=== PATIENT | female | born 1990 | race Caucasian/White ===

== ENCOUNTER 2024-01-24 14:52 | Emergency (ER) | payer SELFPAY ==
[2024-01-24 14:56] VITALS: BP 189/101
--- NOTE | 2024-01-24 16:08 | ED.GENMED ---
History of Present Illness
General
Chief Complaint: Skin Problem
Source: patient
Exam Limitations: none
Time Seen by Provider: 01/24/24 16:03
Nursing documentation reviewed up to this point in time: agreed with
History of Present Illness
History of Present Illness:
This is a 33 y/o female with a PMH of HTN, anxiety, opioid use disorder on Suboxone presenting to the emergency department today with concerns of pain and swelling to the vaginal area. Patient reports when this first started a week or so ago, she
thought she had a pimple or an ingrown hair in the area. Patient reports that she than proceeded to have increasing pain as the days progressed and started to have discomfort with sitting. On self examination, she noticed swelling in the genital
area and believes it may be an ingrown hair. Patient states that she had an abscess on her vulva in the past on the right side which was drained before. Patient states that she currently does not follow with an OBGYN and is currently in the process
of getting insurance. Patient notes purulent discharge in her underwear and believes the abscess has started to open up. Patient also is requesting STD testing although denies new sexual partner, denies burning with urination, urinary hesitancy,
urgency, frequency, pelvic pain, abdominal pain, nausea, vomiting, fevers, chills.
Review of Systems
Review of Systems
All Other Systems: ROS reviewed and negative except as documented in HPI and ROS
Phy Exam
Physical Exam
Physical Exam:
General: Patient appears uncomfortable secondary to pain, tearful but non-toxic
Skin: Warm and dry, no rashes or lesions
Head: Normocephalic, atraumatic
Eyes: Sclera non-icteric. EOMs intact. PERRLA.
Cardiac: Regular rate
Pulm: Normal respiratory effort
Genitourinary: 2 cm indurated region with surrounding erythema noted on the lower left labia majora near bartholins glands. Small non-bleeding external hemorrhoid noted. No perirectal abscesses.
Neuro: CN II-XII intact, no focal neurologic deficits.
Psychiatric: Appropriate mood and affect.
Course
Orders/Labs/Results
Orders:
Orders
01/24/24 16:34
Acetaminophen [Tylenol] 1,000 mg PO NOW STA
01/24/24 17:37
Ibuprofen [Motrin] 400 mg PO NOW STA
01/24/24 18:29
Test Result ONCE
01/24/24 18:42
, Urine Qualitative Screen [HCG, Urine Qualitative Screen] Urgent
Date Specimen was Collected: 01/24/24
Time Specimen was Collected: 18:38
Urinalysis Reflex To Culture Urgent
Date Specimen was Collected: 01/24/24
Time Specimen was Collected: 18:38
Urine Microscopic Reflex Cult Urgent
Urine Culture Urgent
ERIC Source: U
Specimen Description:
Date Specimen was Collected: 01/24/24
Time Specimen was Collected: 18:38
Wound Culture [Wound/Abscess/Other Culture] Urgent
ERIC Source: Abscess
Specimen Description:
Date Specimen was Collected: 01/24/24
Time Specimen was Collected: 18:38
Abnormal Lab Results
01/24/24
18:42
Urine Ketones 2+ A
(Negative)
Ur Occult Blood Reflex 3+ A
(Negative)
Urine Bilirubin 1+ A
(Negative)
Leukocyte Esterase Rfl 2+ A
(Negative)
Urine RBC 3-6 A /HPF
(0-2)
Urine WBC (Reflex) 11-15 A /HPF
(0-5)
Urine Bacteria (Reflex) Few A
(Negative)
Vital Signs
Initial and Last Documented VS:
Initial Vital Signs
Temp Pulse Resp BP Pulse Ox
98.3 F 74 20 189/101 99
01/24/24 14:56 01/24/24 14:56 01/24/24 14:56 01/24/24 14:56 01/24/24 14:56
Last Documented Vital Signs
Temp Pulse Resp BP Pulse Ox
98.3 F 96 18 98/73 99
01/24/24 14:56 01/24/24 18:56 01/24/24 18:56 01/24/24 18:56 01/24/24 14:56
Procedures
Incision/Drainage/Joint Aspiration
Left Vagina:
Anethesia: 1% Lidocaine with Epi
Preparation: cleaned with Betadine
Type of procedure: incise and drain
Nature of site: abscess
Description of abscess: less than 3cm
Loculations broken up: No
How much fluid was obtained?: large amount
Fluid description: purulent and blood tinged
Treatment: left open for drainage and antibiotics started
MDM/Problems Addressed
Differential Diagnosis Includes:
ddx include Bartholin gland cyst/abscess, vulvar abscess, cellulitis, contact vaginitis
MDM/Problems Addressed:
Vulvar cyst/abscess:
This is a 33 y/o female with a PMH of HTN, anxiety, opioid use disorder on Suboxone presenting to the emergency department today with concerns of pain and swelling to the vaginal area. Patient denies fevers, chills, nausea, vomiting. Denies burning
with urination, pelvic pain, abdominal pain. She does have a hx of vaginal abscess on opposite side. On physical exam, her vitals are stable, afebrile, there is a 2 cm indurated region with surrounding erythema noted on the lower left labia majora
near bartholins glands consistent with bartholins gland abscess. The area was anesthetized and abscess was incised and drained. No cyst capsule removed. Considered word catheter but patient has poor outpatient follow up due to current financial
limitations. After procedure, patient notes significant improvement in her symptoms and is nearly pain free and able to sit with comfort. Considering extensive surrounding erythema, patient was started on antibiotics. Patient is allergic to
amoxicillin, I opted for Bactrim. Discussed with patient that these tend to reoccur without surgical intervention, stressed OBGYN follow up. Reviewed case and treatment plan with my attending Dr. Stubbs. Patient stable for discharge. Patient's pain
was managed with Tylenol and Motrin.
Chronic conditions affecting care:
opioid use disorder on Suboxone, anxiety, hypertension
*Pulse Oximetry
Patient hypoxic: no
*Critical Care Note
Total Time (30-74mins, 75-104mins- exclusive of procedures): Not Applicable
Data Reviewed
Review of Other/Old Records Reveals: Records (reviewed operative report from 09/16/21) and Discharge Summary (no hospital discharge summaries in [facility] to review)
Source: patient and records
Prescriptions/Medications Considered But Not Given:
n/a
Further Testing Considered But Not Given:
n/a
Patient Management
Social determinants of health affecting care: Poor outpatient follow-up
Escalation/DeEscalation of care consider admission/obs:
Admit not indicated, patient stable for discharge.
ED Attending Note
-
Portions of this chart may have been created with voice recognition software.� Occasional wrong word or��sound alike� substitutions may have occurred due to the inherent limitations of voice recognition software.
Discharge Plan
Departure
Patient Disposition: Home (Routine Discharge)
Date of Disposition: 01/24/24
Time of Disposition: 18:33
Patient with high blood pressure during this ER visit?: Yes
Condition: Good
Discharge Problem:
Abscess of Bartholin gland
Instructions: Bartholin gland cyst, How to Do a Sitz Bath, Skin Abscess
Prescriptions:
New
sulfamethoxazole-trimethoprim [Bactrim DS] 800-160 mg tablet
1 tab PO BID 5 Days Qty: 10 0RF
No Action
Suboxone Tablet
10 mg PO DAILY
Referrals:
Tiara Arguello, DO [Active] - Call in 1-3 days for appt
NONE,* [Family Provider] -
Activity Restrictions/Additional Instructions:
You can expect the abscess to continue to drain over the next two days.
It is very important that you follow up with an OBGYN. Please call the attached number to schedule an appointment.
You will receive a call with the results of your testing.
An antibiotic called Bactrim has been sent to your pharmacy. You can start it tomorrow. Please take one tablet twice daily for 5 days.
Please return to the emergency department should you experience an acute worsening of your symptoms, nausea, vomiting, chest pain, shortness of breath, fevers or chills, tongue or lip swelling.
Interventions
Interventions:
*Risk Screen - Suicide Last Done: 01/24/24 14:56
*General Assessment Last Done: 01/24/24 14:56
*Neglect/Abuse Screening Last Done: 01/24/24 14:56
*Nursing Disposition Last Done: 01/24/24 18:56
ED-Skin Assessment Last Done: 01/24/24 18:56
Discharge Date and Time
Discharge Date/Time: 01/24/24 18:57
Print Language: CHINESE
[2024-01-24] MEDS: TYLENOL 1000 MG PO (17:24)
[2024-01-24] MEDS: MOTRIN 400 MG PO (17:45)
[2024-01-24 18:56] VITALS: BP 98/73
[2024-01-24 18:56] LABS: HCG, Urine Qualitative Screen Negative
[2024-01-24 18:59] LABS: Urine Albumin Trace (Neg - Trace); Urine Bilirubin 1+ (Negative); Urine Character Very Cloudy (Clear); Urine Color Yellow; Urine Glucose Negative (Negative); Urine Ketone 2+ (Negative); Urine Leukocyte 2+ (Negative); Urine Nitrite Negative (Negative); Urine Occult Blood 3+ (Negative); Urine Specific Gravity 1.025 (<1.030); Urine Urobilinogen 1+ (Neg - 1+)
[2024-01-24 19:08] LABS: Urine Squamous Cell >30 /LPF (Few)
[2024-01-24 19:09] LABS: Urine Bacteria Few (Negative); Urine Mucus Few
== END 2024-01-24 18:57 | disposition home or self-care (01) ==
LOC: EMR 14:52
PROVIDERS: Physician Assistant; EMERGENCY PHYSICIAN Student in an Organized Health Care Education/Training Program
DX: N75.1 Abscess of Bartholin's gland (principal); I10 Essential (primary) hypertension; F41.9 Anxiety disorder, unspecified; F17.200 Nicotine dependence, unspecified, uncomplicated; F11.21 Opioid dependence, in remission; Z88.0 Allergy status to penicillin
CPT/HCPCS: 99283; 56420; 81003; 81015; 81025; 87070; 87086; 87147; 87205

== ENCOUNTER 2025-02-27 10:42 | Emergency (ER) | payer MEDICARE, SELFPAY ==
[2025-02-27 10:44] VITALS: BP 105/69
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
== END 2025-02-27 13:48 | disposition home or self-care (01) ==
LOC: EMR 10:42
PROVIDERS: EMERGENCY PHYSICIAN Emergency Medicine
DX: S01.112A Laceration without foreign body of left eyelid and periocular area, initial encounter (principal); V89.2XXA Person injured in unspecified motor-vehicle accident, traffic, initial encounter; Y92.411 Interstate highway as the place of occurrence of the external cause
CPT/HCPCS: 99283; 12011; 99282